=== PATIENT | female | born 1995 | race Caucasian/White ===

== ENCOUNTER 2018-05-31 05:08 | Inpatient (IN) | payer OTHER ==
[2018-05-31] MEDS ORDERED: Ondansetron HCl/PF 4 MG/2 ML Vial IVP PRN ×3 (05:23→12:47)
[2018-05-31] MEDS ORDERED: Lidocaine 1% (PF) 30 ML VIAL SC PRN (05:23)
[2018-05-31] MEDS ORDERED: Promethazine HCl 25 MG/ML VIAL IM PRN ×2 (05:23→11:17)
[2018-05-31] MEDS ORDERED: NS / Oxytocin 40 units/1000ml 1,000 ML IV PRN (05:23)
[2018-05-31] MEDS ORDERED: Ibuprofen 800 MG TAB PO PRN (05:23)
--- NOTE | 2018-05-31 05:28 | PDOC.FPROB ---
FMR OB H&P: HPI - History of Present Illness Chief Complaint: Leaking of fluid Indentification: 22 year old History of Present Illness: 22 year old at 39 wks by LMP/18 wk US with JOVITA of 06/06/2018 presents with loss of clear fluid at approximately 3:30 this morning. She started noting contractions that are increasing in intensity shortly after ROM. has been uncomplicated. Patient denies vaginal bleeding. Endorses good movement. 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: Abnormal pap: LGSIL with HR HPV - Surgical History Sx History: Tonsillectomy - Social History Social History: Denies alcohol, tobacco, drug use - Family History Family History: Noncontributory FMR OB H&P: Medications - Current Home Medications: Medication Instructions Recorded Confirmed Type Vit 108/Iron/Folic AC 1 tablet PO DAILY 05/31/18 05/31/18 History [ One Tablet] Allergies/Adverse Reactions: Allergies Allergy/AdvReac Type Severity Reaction Status Date / Time amoxicillin AdvReac Mild Nausea Verified 05/31/18 05:31 FMR OB H&P: ROS - Review of Systems General: denies: fever/chills, weight/appetite/sleep changes Eyes: denies: vision changes, scotomas ENT: denies: nasal congestion, rhinorrhea Cardiovascular: denies: chest pain, palpitation Gastrointestinal: reports: abdominal pain. denies: nausea, vomiting, diarrhea Genitourinary (Female): reports: polyuria, contractions. denies: dysuria Neurologic: denies: seizures, weakness Integumentary: denies: rash, lesions Hematologic/Lymphatic: denies: prolonged or excessive bleeding Psychological: denies: depression, anxiety FMR OB H&P: Vital Signs - Maternal Vital signs: BP 134/87 Pulse 96 - Heart Tones Baseline: 130 Variability: moderate Acceleration: present Deceleration: absent Category: category 1 [place] contractions every: q3-6 min FMR OB H&P: Physical Exam - Physical Exam General: NAD, awake, alert and oriented HEENT: MMM, grossly normal vision, grossly normal hearing Neck: supple General: no respiratory distress, no retractions Abdomen: soft, gravid, non-tender Musculoskeletal: pulses present Neurological: no tremor, no focal deficit Skin: no rash, capillary refill <2 seconds Lymphatic: no unusual bruising or bleeding Psychiatric: intact recent and remote memory, good judgement and insight, normal mood and affect - Pelvic Exam SVE: /-3 by Ileana at 5:40 AM FMR OB H&P: A/P - Problem List (1) SROM (spontaneous rupture of membranes) Current Visit: Yes Status: Acute Code(s): [id number] - (2) Current Visit: Yes Status: Acute Qualifiers: Weeks of gestation: 39 weeks Qualified Code(s): Z3A.39 - 39 weeks gestation of Assessment and Plan: 22 year old at 39 wks 1. SROM - At appx 3:30 this AM, clear fluid - Started emerita shortly after ROM - Cervical check: 3 @ 5:40 AM - Expectant management - Admit to L&D 2. sIUP in labor - At 39 wks - GBS negative - Desires epidural for pain control - Expectant management Disposition: Stable. Admit to L&D for expectant management. Discussion: Date/Time: 05/31/18525 This H&P was discussed with Dr. Canchola who agrees with the above documentation and plan. Signature: Edilia Gloria DO PGY-2 Attending Addendum - Attending Addendum Date/Time: 05/31/1831 I personally evaluated the patient and discussed the management with Dr. Younger. 22 yo WF at 39 weeks presents with SROM early this AM, SVE 4 cm on admit. FHTs are stable, UCs are irregular. GBS is negative. Will admit and watch progress, pitocin augmentation if needed. I agree with the History, Examination, Assessment and Plan documented above. Dr. Jim Al has been notified.
[2018-05-31 05:37] VITALS: BMI 32.1
[2018-05-31] MEDS: Lactated Ringer's 1,000 ML IV SCH ×2 (06:00→11:20)
[2018-05-31 06:42] LABS: Hemoglobin 12.9 g/dL (12.0-16.0); Mean Corpuscular HGB CONC 34.6 g/dL (32.0-36.0); Mean Corpuscular Hemoglobin 31.1 pg (27.0-31.0); Mean Corpuscular Volume 90.1 fL (78.0-98.0); Platelet Count 172 thou/uL (130-400); RBC Distribution Width 11.8 % (11.5-14.5); Red Blood Cell (RBC) Count 4.13 mill/uL (4.20-5.40); White Blood Cell (WBC) Count 12.9 thou/uL (4.8-10.8)
[2018-05-31 07:10] LABS: HBSAg Index 0.17 S/CO (0-0.99); Hep B Surf Ag Non-Reactive S/CO (NonReactive); Syphilis Antibody Nonreactive (Nonreactive); Syphilis Antibody Index 0.03 S/CO (<1.00 Non-Reactive)
[2018-05-31] MEDS ORDERED: NS w/ Oxytocin 10 units 500 ML ONE (07:31)
[2018-05-31] MEDS ORDERED: NS w/ Oxytocin 10 units 500 ML IV SCH (08:00)
[2018-05-31] MEDS ORDERED: Bupivacaine 0.25% 10 ML VIAL ONE (08:15)
[2018-05-31] MEDS ORDERED: Fentanyl 4 mcg/Bup 0.1% Cadd 100 ML ONE (10:15)
[2018-05-31] MEDS ORDERED: ePHEDrine/0.9% NaCl/PF SYRINGE 50 mg/10 ml SLOW IVP PRN (11:17)
[2018-05-31] MEDS ORDERED: Eucerin (Mineral Oil/Petrolatum,White) 30 gm Jar TOP PRN (11:17)
[2018-05-31] MEDS ORDERED: diphenhydrAMINE 50 MG/ML VIAL IVP PRN (11:17)
[2018-05-31] MEDS ORDERED: Naloxone HCl 0.4 mg/ml Vial IVP PRN ×2 (11:17)
[2018-05-31] MEDS ORDERED: Lactated Ringer's 500 ML IV PRN (11:17)
[2018-05-31] MEDS ORDERED: Acetaminophen 325 MG TAB PO PRN (11:17)
[2018-05-31] MEDS ORDERED: NS / Oxytocin 40 units/1000ml 1,000 ML ONE (11:25)
[2018-05-31] MEDS ORDERED: Lidocaine 1% (PF) 30 ML VIAL ONE (11:25)
[2018-05-31] MEDS ORDERED: Communication Order-Pharmacy FS SCH (11:30)
[2018-05-31] MEDS ORDERED: Fentanyl 4 mcg/Bupivacaine 0.1% Cassette 100 ML EPIDURAL SCH (11:30)
[2018-05-31] MEDS ORDERED: HYDROcodone/Acetaminophen 5/325 mg Tablet PO PRN ×2 (12:47)
[2018-05-31] MEDS ORDERED: Lanolin Ointment 7 GM TUBE TOP PRN (12:47)
[2018-05-31] MEDS ORDERED: diphenhydrAMINE 25 MG CAP PO PRN (12:47)
[2018-05-31] MEDS ORDERED: Adacel (T-DAP) 0.5 ML VIAL IM ONE (12:47)
[2018-05-31] MEDS ORDERED: Benzocaine/Menthol 20-0.5% 60 ML CAN TOP PRN (12:47)
[2018-05-31] MEDS ORDERED: Varicella virus, LIVE 0.5 ML VIAL SC ONE (12:47)
[2018-05-31] MEDS ORDERED: Milk Of Magnesia 30 ML UDCUP PO PRN (12:47)
[2018-05-31] MEDS ORDERED: Preparation H Ointment 28 GM TUBE PR PRN (12:47)
[2018-05-31] MEDS ORDERED: Bisacodyl 10 MG SUPP PR PRN (12:47)
[2018-05-31] MEDS ORDERED: NS / Oxytocin 40 units/1000ml 1,000 ML IV SCH (13:00)
[2018-05-31] MEDS: Ibuprofen 800 MG TAB PO SCH ×2 (16:04→22:05)
--- NOTE | 2018-05-31 16:59 | OP ---
DATE OF ADMISSION: 05/31/2018 ADMITTING DIAGNOSES: 1. A 22-year-old G2, P1 at 39 weeks with spontaneous rupture of membranes at 03:30 a.m. 2. GBS negative. 3. Irregular contractions. POSTOPERATIVE DIAGNOSES: 1. A 22-year-old G2, P1 at 39 weeks with spontaneous rupture of membranes at 03:30 a.m. 2. GBS negative. 3. Irregular contractions. 4. Liveborn female, weight unavailable at the time of dictation with Apgars of 8 and 9 at 1 and 5 mi nutes respectively. 5. Compound presentation. PROCEDURES: Spontaneous vaginal delivery and repair of right periurethral tear. SURGEON: Lizy Al M.D. ESTIMATED BLOOD LOSS: 150 mL. QUANTITATIVE BLOOD LOSS: 192 mL. ANESTHESIA: Epidural. CLINICAL HISTORY: This patient is a 22-year-old female, G2, P1-0-0-1, who presented at [facility] 04:00 a.m. to the Labor and Delivery with a complaint of spontaneous rupture of membranes. She was grossly ruptured and was admitted by the laborist and the doctor decontamination worker was notified. At the time of presentation, she was 3-4 cm dilated. She did not make cervical change after an hour and a half and was then augmented or started on Pitocin for labor induction. She had a category 1 edith ng and the patient continued to progress with the Pitocin appropriately. She did request an epidural for maternal analgesia. Thereafter, she progressed rapidly from 7 cm to complete dilation. The rap id descent did cause a prolonged decel, which recovered to a category 1 tracing. Shortly thereafter, the patient was checked and was noted to be complete, +1 station, and ready to push. DETAILS OF THE PROCEDURE: The patient with good maternal effort was able to push the vertex to in the DOMINIQUE position. The head was delivered, then was noted that there was a hand being de livered with the shoulder. The hand was swept in front of the chest and up and out and then the ante rior shoulder was delivered, following by the remainder of the infant's body. The infant cried spont aneously. The cord was doubly clamped and cut by the father and the was placed on the materna l abdomen for skin to skin. The cord blood was obtained. Then, the placenta was delivered spontaneo usly intact with a 3-vessel cord. Massage of the uterus noted, nice firming of the uterine fundus be low the umbilicus. The vagina, introitus, and cervix was explored and noted to be hemostatic. There was a small periurethral tear on the right side that was bleeding and this was repaired with a 3-0 p tyrell gut on a SH with excellent hemostasis. The patient was able to recover in satisfactory conditio n with her . Again, the was a female, weight unavailable at the time of dictation with Apgars of 8 and 9 at 1 and 5 minutes respectively. There were no other issues surrounding this deliv marty.
[2018-05-31] MEDS: Ferrous Sulfate 325 MG TAB PO SCH (18:50)
[2018-05-31] MEDS: Docusate Calcium (SURFAK) 240 MG CAP PO SCH (22:05)
[2018-06-01] MEDS: Ibuprofen 800 MG TAB PO SCH ×2 (05:38→13:36)
[2018-06-01 07:36] VITALS: TEMP 97.9
[2018-06-01] MEDS ORDERED: Prenatal Vitamin 1 TAB PO SCH (09:00)
[2018-06-01] MEDS: Ferrous Sulfate 325 MG TAB PO SCH (09:26)
[2018-06-01] MEDS: Docusate Calcium (SURFAK) 240 MG CAP PO SCH (09:26)
[2018-06-01 11:27] VITALS: BP 133/89
== END 2018-06-01 14:50 | disposition home or self-care (01) | DRG 807 ==
LOC: L&D/OP 05:08 → L&D 05:48 → 3SW 16:24
PROVIDERS: ADMIT Obstetrics & Gynecology; ATTEND Obstetrics & Gynecology
PROC: 10E0XZZ Delivery of Products of Conception, External Approach (ICD-10-PCS; principal; 2018-05-31)
PROC: 0HQ9XZZ Repair Perineum Skin, External Approach (ICD-10-PCS; 2018-05-31)
DX: O32.6XX0 Maternal care for compound presentation, not applicable or unspecified (principal); Z37.0 Single live birth; Z3A.39 39 weeks gestation of pregnancy; O71.82 Other specified trauma to perineum and vulva
CPT/HCPCS: 36415; 51702; 85027; 86780; 86850; 86900; 86901; 87340; 90471; 90686; 90715; 90716; 99285; G0008; J2001; S0020